=== PATIENT | male | born 1990 | race Caucasian/White ===

== ENCOUNTER 2016-06-09 19:53 | Emergency (ER) | payer OTHER ==
[~2016-06-09] VITALS: Ht 188 cm; Wt 90.9 kg
[2016-06-09 21:38] VITALS: BP 128/64
== END 2016-06-09 21:39 | disposition home or self-care (01) ==
LOC: EME 19:53
PROC: 0HQGXZZ Repair Left Hand Skin, External Approach (ICD-10-PCS; principal; 2016-06-09)
DX: S61.211A Laceration without foreign body of left index finger without damage to nail, initial encounter (principal); W45.8XXA Other foreign body or object entering through skin, initial encounter; Y93.H9 Activity, other involving exterior property and land maintenance, building and construction; Y92.096 Garden or yard of other non-institutional residence as the place of occurrence of the external cause
CPT/HCPCS: 99281; 99283; S0020